=== PATIENT | female | born 1995 | race Caucasian/White ===

== ENCOUNTER 2018-05-22 10:18 | Outpatient (CLI) | payer OTHER ==
[2018-05-22 17:57] LABS: ALBUMIN 4.4 g/dL (3.2-5.5); ALBUMIN/GLOBULIN RATIO 1.5 (1.0-2.2); BILIRUBIN,TOTAL 0.9 mg/dL (0.2-1.0); CALCIUM 9.3 mg/dL (8.5-10.3); CREATININE 0.7 mg/dL (0.4-1.0); TOTAL PROTEIN 7.4 g/dL (6.7-8.2)
[2018-05-22 17:58] LABS: BASOPHILS % (AUTO) 0.7 %; EOSINOPHILS # (AUTO) 0.1 10^3/uL (0.0-0.7); EOSINOPHILS % (AUTO) 1.4 %; HGB - HEMOGLOBIN 14.8 g/dL (12.0-16.0); LYMPHOCYTES # (AUTO) 2.1 10^3/uL (1.5-3.5); LYMPHOCYTES % (AUTO) 38.5 %; MEAN CORPUSCULAR HEMOGLOBIN 30.4 pg (27.0-31.0); MEAN CORPUSCULAR HGB CONC 33.2 g/dL (32.0-36.0); MEAN CORPUSCULAR VOLUME 91.4 fL (81.0-99.0); MEAN PLATELET VOLUME 9.1 fL (7.9-10.8); MONOCYTES # (AUTO) 0.4 10^3/uL (0.0-1.0); MONOCYTES % (AUTO) 6.8 %; NEUTROPHILS # (AUTO) 2.9 10^3/uL (1.5-6.6); NEUTROPHILS % (AUTO) 52.6 %; PLT - PLATELET COUNT 231 10^3/uL (130-450); RED BLOOD COUNT 4.88 10^6/uL (4.20-5.40); RED CELL DISTRIBUTION WIDTH 12.9 % (12.0-15.0); WHITE BLOOD COUNT 5.5 x10^3/uL (4.8-10.8)
== END 2018-05-22 10:19 | disposition home or self-care (01) ==
LOC: LAB.F 10:18
PROVIDERS: ATTEND Nurse Practitioner
DX: R53.83 Other fatigue (principal)
CPT/HCPCS: 36415; 80053; 84443; 85025

== ENCOUNTER 2019-09-02 08:00 | Outpatient (CLI) | payer OTHER ==
--- NOTE | 2019-09-02 13:56 | XRAY Report ---
PROCEDURE: Ankle 3 View LT INDICATIONS: LEFT ANKLE PAIN TECHNIQUE: 3 views of the ankle were acquired. COMPARISON: X-ray foot 09/02/2019 FINDINGS: Bones: No fractures or dislocations. Ankle mortise is normally aligned. No suspicious bony lesions . Soft tissues: No tibiotalar joint effusion. Achilles tendon appears normal. IMPRESSION: No visualized acute fracture or dislocation. However, occult injury cannot be excluded. Recommend short interval imaging follow-up in 7-10 days as clinically indicated for additional evalua tion. Reviewed by: Gita Frazier MD on 09/02/2019 1:55 PM PDT Approved by: Gita Frazier MD on 09/02/2019 1:55 PM PDT Station ID: [id number]
--- NOTE | 2019-09-02 13:56 | XRAY Report ---
PROCEDURE: Foot 3 View LT INDICATIONS: LEFT FOOT PAIN TECHNIQUE: 3 views of the foot were acquired. COMPARISON: X-ray ankle 09/02/2019 FINDINGS: Bones: No fractures or dislocations. No suspicious bony lesions. Soft tissues: No tibiotalar joint effusion. Achilles tendon appears normal. IMPRESSION: No visualized acute fracture or dislocation. However, occult injury cannot be excluded. Recommend jose rt interval imaging follow-up in 7-10 days as clinically indicated for additional evaluation. Reviewed by: Gita Frazier MD on 09/02/2019 1:55 PM PDT Approved by: Gita Frazier MD on 09/02/2019 1:55 PM PDT Station ID: [id number]
== END 2019-09-02 23:59 | disposition home or self-care (01) ==
LOC: DI.S 08:00
PROVIDERS: ATTEND Physician Assistant
DX: M25.572 Pain in left ankle and joints of left foot (principal); M79.672 Pain in left foot

== ENCOUNTER 2019-09-12 14:05 | Outpatient (CLI) | payer OTHER | END 2019-09-12 23:59 | disposition home or self-care (01) | LOC: COV 14:05 | PROVIDERS: ATTEND Family Medicine | DX: R50.9 Fever, unspecified (principal); R05 Cough; M79.10 Myalgia, unspecified site; R53.83 Other fatigue; R19.7 Diarrhea, unspecified; R09.81 Nasal congestion; Z20.828 Contact with and (suspected) exposure to other viral communicable diseases ==

== ENCOUNTER 2021-01-25 08:00 | Outpatient (CLI) | payer OTHER | END 2021-01-25 23:59 | disposition home or self-care (01) | LOC: LAB.S 08:00 | PROVIDERS: ATTEND Physician Assistant Medical | DX: R05.9 Cough, unspecified (principal); Z20.822 Contact with and (suspected) exposure to COVID-19 | CPT/HCPCS: 87070; 87275; 87276 ==

== ENCOUNTER 2022-04-26 16:04 | Emergency (ER) | payer OTHER ==
[2022-04-26 16:34] LABS: BASOPHILS % (AUTO) 0.5 %; EOSINOPHILS # (AUTO) 0.1 10^3/uL (0.0-0.7); EOSINOPHILS % (AUTO) 0.9 %; HCT - HEMATOCRIT 44.3 % (37.0-47.0); HGB - HEMOGLOBIN 14.4 g/dL (12.0-16.0); LYMPHOCYTES # (AUTO) 2.6 10^3/uL (1.5-3.5); LYMPHOCYTES % (AUTO) 29.5 %; MEAN CORPUSCULAR HGB CONC 32.5 g/dL (32.0-36.0); MEAN CORPUSCULAR VOLUME 86.2 fL (81.0-99.0); MEAN PLATELET VOLUME 10.1 fL (7.9-10.8); MONOCYTES # (AUTO) 0.6 10^3/uL (0.0-1.0); MONOCYTES % (AUTO) 6.3 %; NEUTROPHILS # (AUTO) 5.5 10^3/uL (1.5-6.6); NEUTROPHILS % (AUTO) 62.5 %; PLT - PLATELET COUNT 273 10^3/uL (130-450); RED BLOOD COUNT 5.14 10^6/uL (4.20-5.40); RED CELL DISTRIBUTION WIDTH 13.8 % (12.0-15.0); WHITE BLOOD COUNT 8.7 x10^3/uL (4.8-10.8)
[2022-04-26 16:40] LABS: HCG UR QUAL NEGATIVE
[2022-04-26 16:47] LABS: ALBUMIN 4.5 g/dL (3.2-5.5); ALBUMIN/GLOBULIN RATIO 1.4 (1.0-2.2); BILIRUBIN,TOTAL 0.5 mg/dL (0.2-1.0); CREATININE 0.6 mg/dL (0.4-1.0); POTASSIUM 3.7 mmol/L (3.5-5.0); TOTAL PROTEIN 7.7 g/dL (6.7-8.2)
[2022-04-26] MEDS ORDERED: HYDROmorphone 1 MG/ML CARPUJECT IM STA (17:08)
[2022-04-26] MEDS ORDERED: KETOROLAC 60 MG/2 ML VIAL IM STA (17:08)
--- NOTE | 2022-04-26 17:11 | ED Physician Documentation ---
History of Present Illness - Stated complaint Stated Complaint: FEMALE - Chief complaint Chief Complaint: Abd Pain - History obtained from History obtained from: Patient - Additonal information Additional information: Patient comes to the emergency department chief complaint of pelvic pain for the last couple of days. She states that she has had dysuria and thought that perhaps she had a UTI. She started some Uristat that she had leftover from her last UTI, but has felt increasingly worse, with a deep burning and pain throughout her bilateral pelvis. Patient denies any nausea or vomiting. No unusual vaginal discharge. She states that she just finished her period about a week ago. She denies any symptoms of yeast infection. She states she has pain in her vulva and vagina that makes it difficult for her to sit down. She states the pain goes up through her pelvis on both sides. The patient denies any fevers or chills. She states she has been monogamous with her female partner fo r some years and has never had a sexually transmitted infection. No other complaints at this time. PD PAST MEDICAL HISTORY - Past Medical History Cardiovascular: None Respiratory: Asthma Neuro: None Endocrine/Autoimmune: None GI: None MOLDING LINE ASSISTANT: None : None HEENT: None Psych: None Musculoskeletal: None Derm: None - Past Surgical History Past Surgical History: No - Present Medications Home Medications: Ambulatory Orders Medication Instructions Recorded Confirmed norethindrone-e.estradioL-iron 1 each PO 11/13/13 11/26/13 [Microgestin Fe 1-20 Tablet] dexAMETHasone [Decadron] 4 mg PO DAILY #5 tablet 11/24/13 11/26/13 Cetirizine HCl [Zyrtec] 11/26/13 11/26/13 Metoclopramide [Reglan] 10 mg PO Q6H PRN #12 tablet 09/30/21 HYDROcod/ACETAM 5/325 [[place] 5/325] 1 - 2 tablet PO Q6H PRN #14 tablet 04/26/22 Ondansetron Odt [Zofran] 4 mg TL Q6H PRN #10 tablet 04/26/22 Sulfamethox/Trimeth 800/160 1 each PO BID #14 tablet 04/26/22 [Bactrim Ds 800/160] - Allergies Allergies/Adverse Reactions: Allergies Allergy/AdvReac Type Severity Reaction Status Date / Time amoxicillin [Amoxicillin] Allergy Rash Verified 04/26/22 16:12 azithromycin Allergy Hives Verified 04/26/22 16:12 Penicillins Allergy Hives Verified 04/26/22 16:12 - Social History Does the pt smoke?: No Smoking Status: Never smoker Does the pt drink ETOH?: Yes Does the pt have substance abuse?: Yes - Immunizations Immunizations are current?: Yes - POLST Patient has POLST: No PD ED PE NORMAL - Vitals Vital signs reviewed: Yes - General General: Alert and oriented X 3, No acute distress, Well developed/nourished - HEENT HEENT: Atraumatic, PERRL, EOMI, Moist mucous membranes - Neck Neck: Supple, no meningeal sign - Cardiac Cardiac: RRR, No murmur, Strong equal pulses - Respiratory Respiratory: No respiratory distress, Clear bilaterally - Abdomen Abdomen: Soft, Non distended, Other (Exquisite tenderness bilateral pelvis and suprapubic area. No rebound. Does not extend into flanks or upper abdomen.) - Female Female : Other (Normal female genitalia. Mild erythema around vaginal introitus. No edema or fluctuance. No mass. The patient has cervical motion tenderness and bilateral adnexal tenderness without mass. Mild amount of brownish tinged vaginal discharge.) - Derm Derm: Normal color, Warm and dry, No rash - Extremities Extremities: No deformity - Neuro Neuro: Alert and oriented X 3 - Psych Psych: Normal mood, Normal affect Results - Vitals Vitals: Oxygen O2 Source Room air - Labs Labs: Laboratory Tests 04/26/22 04/26/22 04/26/22 16:21 16:29 16:29 WBC 8.7 RBC 5.14 Hgb 14.4 Hct 44.3 MCV 86.2 MCH 28.0 MCHC 32.5 RDW 13.8 Plt Count 273 MPV 10.1 Neut # (Auto) 5.5 Lymph # (Auto) 2.6 [place] # (Auto) 0.6 Eos # (Auto) 0.1 Baso # (Auto) 0.0 Absolute Nucleated RBC 0.00 Nucleated RBC % 0.0 Sodium 138 Potassium 3.7 Chloride 101 Carbon Dioxide 27 Anion Gap 10.0 BUN 11 Creatinine 0.6 Estimated GFR (MDRD) 121 Glucose 102 H Calcium 9.0 Total Bilirubin 0.5 AST 16 ALT 19 Alkaline Phosphatase 68 Total Protein 7.7 Albumin 4.5 Globulin 3.2 Albumin/Globulin Ratio 1.4 Lipase 30 Urine HCG, Qual NEGATIVE - Rads (name of study) US pelvis Radiology: Final report received, See rad report (PCOS, otherwise NAD) PD Medical Decision Making - ED course Complexity details: reviewed results, re-evaluated patient, considered differential, d/w patient ED course: The patient was worked up with CBC, ER abdominal panel, test, and ultrasound of the pelvis, all of which were ordered and reviewed by me. She was treated symptomatically with IM Dilaudid and Toradol. CBC and ERAP were unremarkable. test was negative. US pelvis showed findings consistent with polycystic ovarian disease, but otherwise negative. THe pt had already had a UA done at walk-in clinic, but because it was orange from the [facility], it was not able to be evaluated. Therefore, I did not feel there would be utility in repeating this only a few hours later. Given the pt's sx, I felt she should be treated with antibiotics. She had tenderness throughout her pelvis, but no discharge, fever, white count, or US findings. At this point, I decided to treat her for UTI at this time. However, we have discussed the need for follow-up if this does not resolve the sx. Departure - Departure Disposition: 01 Home, Self Care Clinical Impression: Pelvic pain in female Ovarian cyst Qualifiers: Laterality: bilateral Qualified Code(s): N83.201 - Unspecified ovarian cyst, right side UTI (urinary tract infection) Qualifiers: Urinary tract infection type: acute cystitis Hematuria presence: without hematuria Qualified Code(s): N30.00 - Acute cystitis without hematuria Condition: Stable Instructions: ED Cyst Ovarian, ED Pelvic Pain UKO, ED UTI Cystitis Female Prescriptions: Sulfamethox/Trimeth 800/160 [Bactrim Ds 800/160] 1 each PO BID #14 tablet HYDROcod/ACETAM 5/325 [[place] 5/325] 1 - 2 tablet PO Q6H PRN #14 tablet PRN Reason: Pain Ondansetron Odt [Zofran] 4 mg TL Q6H PRN #10 tablet PRN Reason: Nausea / Vomiting Comments: Your laboratory studies are completely normal and your pelvic ultrasound shows only some cysts on your ovaries. It is not clear why you are having some discomfort this time, but since you are having urinary tract infection symptoms, we will go ahead and treat you for that. If this does not resolve your pelvic pain, then you will need to follow-up with your solution manager. A prescription for your antibiotics, and as well as medication for pain, has been electronically transmitted to the [facility], your pharmacy of choice on record. Discharge Date/Time: 04/26/22 18:16
[2022-04-26] MEDS ORDERED: SULFAMETH/TRIMETH DS 800/160 MG TABLET PO STA (17:49)
[2022-04-26 18:05] VITALS: BP 120/82
--- NOTE | 2022-04-26 18:24 | Ultrasound Report ---
PROCEDURE: Pelvic w/Transvag+Doppler Comp INDICATIONS: pelvic pain, R TECHNIQUE: Real-time scanning was performed of the pelvic organs, with image documentation. Additional endovagi nal scanning was necessary due to incomplete visualization of the adnexal and endometrial structures by transabdominal scanning. Doppler interrogation was performed of the ovaries bilaterally. COMPARISON: None. FINDINGS: No pathologic free abdominal or pelvic fluid. Uterus: Uterus is normal in size at 5.8 x 3.2 x 4.0 cm. The endometrium measures 3 mm in combined t hickness. Ovaries: Right and left ovaries measure 3.4 x 1.9 x 3.3 cm and 2.3 x 1.7 x 3.2 cm respectively. Both ovaries have greater than 12 follicles noted, but otherwise appropriate echotexture vascularity Other: No free pelvic fluid. IMPRESSION: No acute findings. No evidence of torsion. Both ovaries have greater than 12 follicles noted. This finding has been correlated with polycystic o varian syndrome in the proper clinical setting Reviewed by: Roland Gutierrez MD on 04/26/2022 5:23 PM [facility] Approved by: Roland Gutierrez MD on 04/26/2022 5:23 PM [facility] Station ID: [id number]
== END 2022-04-26 18:16 | disposition home or self-care (01) ==
LOC: ED 16:04
DX: R10.2 Pelvic and perineal pain (principal); N83.201 Unspecified ovarian cyst, right side; N30.00 Acute cystitis without hematuria
CPT/HCPCS: 36415; 76830; 76856; 80053; 81025; 83690; 85025; 93975; 96372; 99284; A9270; J1170; 81001; 81003; 87086

== ENCOUNTER 2022-08-17 07:00 | Outpatient (CLI) | payer OTHER | END 2022-08-17 23:59 | disposition home or self-care (01) | LOC: LAB.S 07:00 | PROVIDERS: ATTEND Physician Assistant Medical | DX: N39.0 Urinary tract infection, site not specified (principal) | CPT/HCPCS: 87086 ==

== ENCOUNTER 2022-10-20 08:00 | Outpatient (CLI) | payer OTHER | END 2022-10-20 23:59 | disposition home or self-care (01) | LOC: LAB.S 08:00 | PROVIDERS: ATTEND Physician Assistant | DX: R31.9 Hematuria, unspecified (principal) | CPT/HCPCS: 87086 ==

== ENCOUNTER 2022-10-28 08:00 | Outpatient (CLI) | payer OTHER ==
[2022-10-28 19:53] LABS: BACTERIAL VAGINOSIS DNA POSITIVE (NEGATIVE); CANDIDA GLABRATA DNA NEGATIVE (NEGATIVE); CANDIDA GROUP DNA POSITIVE (NEGATIVE); CANDIDA KRUSEI DNA NEGATIVE (NEGATIVE); TRICHOMONAS VAGINALIS DNA NEGATIVE (NEGATIVE)
[2022-10-28 21:40] LABS: CHLAMYDIA TRACHOMATIS DNA NEGATIVE (NEGATIVE); NEISSERIA GONORRHOEAE DNA NEGATIVE (NEGATIVE)
== END 2022-10-28 23:59 | disposition home or self-care (01) ==
LOC: LAB.WC 08:00
PROVIDERS: ATTEND Nurse Practitioner
DX: N39.0 Urinary tract infection, site not specified (principal); Z11.3 Encounter for screening for infections with a predominantly sexual mode of transmission; N89.8 Other specified noninflammatory disorders of vagina
CPT/HCPCS: 81514; 81599; 87109; 87491; 87591; 87661

== ENCOUNTER 2023-03-02 09:04 | Outpatient (CLI) | payer OTHER ==
[2023-03-02 14:39] LABS: BASOPHILS % (AUTO) 0.6 %; EOSINOPHILS # (AUTO) 0.1 10^3/uL (0.0-0.7); EOSINOPHILS % (AUTO) 1.8 %; HCT - HEMATOCRIT 43.9 % (37.0-47.0); LYMPHOCYTES % (AUTO) 39.6 %; MEAN CORPUSCULAR HGB CONC 31.9 g/dL (32.0-36.0); MEAN CORPUSCULAR VOLUME 90.9 fL (81.0-99.0); MONOCYTES # (AUTO) 0.4 10^3/uL (0.0-1.0); MONOCYTES % (AUTO) 7.7 %; NEUTROPHILS # (AUTO) 2.5 10^3/uL (1.5-6.6); NEUTROPHILS % (AUTO) 50.1 %; PLT - PLATELET COUNT 258 10^3/uL (130-450); RED BLOOD COUNT 4.83 10^6/uL (4.20-5.40); RED CELL DISTRIBUTION WIDTH 12.2 % (12.0-15.0)
[2023-03-02 15:42] LABS: ALBUMIN 4.4 g/dL (3.2-5.5); ALBUMIN/GLOBULIN RATIO 1.4 (1.0-2.2); BILIRUBIN,TOTAL 0.8 mg/dL (0.2-1.0); CALCIUM 9.4 mg/dL (8.5-10.3); CREATININE 0.7 mg/dL (0.6-1.3); POTASSIUM 3.9 mmol/L (3.5-4.5); TOTAL PROTEIN 7.6 g/dL (6.4-8.9)
[2023-03-02 16:06] LABS: THYROID STIMULATING HORMONE 1.83 uIU/mL (0.34-5.60)
== END 2023-03-02 09:05 | disposition home or self-care (01) ==
LOC: LAB.S 09:04
PROVIDERS: ATTEND Physician Assistant Medical
DX: N94.6 Dysmenorrhea, unspecified (principal); Z13.9 Encounter for screening, unspecified
CPT/HCPCS: 36415; 80053; 84443; 85025

== ENCOUNTER 2023-03-21 11:22 | Emergency (ER) | payer OTHER ==
--- NOTE | 2023-03-21 12:01 | ED Physician Documentation ---
PD HPI FEMALE - Stated complaint Stated Complaint: - Chief complaint Chief Complaint: Abd Pain - History obtained from History obtained from: Patient - History of Present Illness Timing - onset: How many days ago (6) Timing - duration: Days (6) Timing - details: Gradual onset, Still present, Waxing and waning Associated symptoms: Vaginal bleeding, Dysuria, Urinary frequency. No: Fever, Vaginal discharge, Genital sore/lesion Contributing factors: No: , Exposed to STD Recently seen: Clinic (SENIOR HEALTH PHYSICS TECHNICIAN for eval of painful menses for months.) Review of Systems Constitutional: denies: Fever, Chills Nose: denies: Rhinorrhea / runny nose, Congestion Throat: denies: Sore throat Respiratory: denies: Cough GI: reports: Nausea : reports: Dysuria, Frequency, Irregular menses (has been on currrent menses for 30 days to some degree, with some lower pelvic pains due to PCOS. was texting SENIOR HEALTH PHYSICS TECHNICIAN clinic about med change. Has had painful menses for months, and to be evaluated for endometriosis with pelvic US and MRI, which are being scheduled.). denies: Discharge Musculoskeletal: reports: Back pain Neurologic: reports: Generalized weakness. denies: Near syncope PD PAST MEDICAL HISTORY - Past Medical History Past Medical History: Yes Cardiovascular: None Respiratory: Asthma Neuro: None Endocrine/Autoimmune: None GI: None SENIOR HEALTH PHYSICS TECHNICIAN: Other (PCOS) : Chronic bladder infection HEENT: None Psych: Depression, Anxiety, Post traumatic stress disorder Musculoskeletal: None Derm: None Other Past Medical History: PCOS - Past Surgical History Past Surgical History: Yes - Present Medications Home Medications: Ambulatory Orders Medication Instructions Recorded Confirmed norethindrone-e.estradioL-iron 1 each PO 11/13/13 11/26/13 [Microgestin Fe 1-20 Tablet] dexAMETHasone [Decadron] 4 mg PO DAILY #5 tablet 11/24/13 11/26/13 Cetirizine HCl [Zyrtec] 11/26/13 11/26/13 Metoclopramide [Reglan] 10 mg PO Q6H PRN #12 tablet 09/30/21 HYDROcod/ACETAM 5/325 [[place] 5/325] 1 - 2 tablet PO Q6H PRN #14 tablet 04/26/22 Ondansetron Odt [Zofran] 4 mg TL Q6H PRN #10 tablet 04/26/22 Sulfamethox/Trimeth 800/160 1 each PO BID #14 tablet 04/26/22 [Bactrim Ds 800/160] HYDROcod/ACETAM 5/325 [[place] 5/325] 1 ea PO Q6H PRN #12 tablet 03/21/23 Meloxicam [Mobic] 7.5 mg PO BID 10 Days #20 tablet 03/21/23 Norethindrone AC-Eth Estradiol 1 each PO DAILY #1 packet 03/21/23 [Loestrin 21 1.5-30 Tablet] Sulfamethox/Trimeth 800/160 1 each PO BID #14 tablet 03/21/23 [Bactrim Ds 800/160] - Allergies Allergies/Adverse Reactions: Allergies Allergy/AdvReac Type Severity Reaction Status Date / Time amoxicillin [Amoxicillin] Allergy Rash Verified 03/21/23 11:34 azithromycin Allergy Hives Verified 03/21/23 11:34 Penicillins Allergy Hives Verified 03/21/23 11:34 - Social History Does the pt smoke?: No Smoking Status: Never smoker Does the pt drink ETOH?: Yes Does the pt have substance abuse?: Yes Substance Use and Type: Marijuana - Immunizations Immunizations are current?: Yes - POLST Patient has POLST: No PD ED PE NORMAL - Vitals Vital signs reviewed: Yes - General General: Alert and oriented X 3, Well developed/nourished, Other (appears in pain lower abd. ) - Cardiac Cardiac: No murmur. No: RRR (tachycardic but normal BP. Presume due to pain but will get labs, give IV fluids and pain meds. ) - Respiratory Respiratory: No respiratory distress, Clear bilaterally - Abdomen Abdomen: Normal bowel sounds, Soft, Non distended, No organomegaly, Other (tender with guarding lower abd suprapubic and LLQ areas with some guarding and percussion tender but no rebound nor referred. ) - Female Female : Deferred (will have her due self swab for BV eval. ) - Derm Derm: Normal color, Warm and dry - Extremities Extremities: No edema - Neuro Neuro: Alert and oriented X 3, No motor deficit, Normal speech Results - Vitals Vitals: Vital Signs - 24 hr 03/21/23 03/21/23 03/21/23 11:34 13:41 15:00 Temperature 36.2 C L Heart Rate 121 H 75 70 Respiratory 18 20 18 Rate Blood Pressure 139/88 H 109/81 H 115/76 O2 Saturation 97 95 98 03/21/23 16:15 Temperature Heart Rate 72 Respiratory 16 Rate Blood Pressure 118/76 O2 Saturation 98 Oxygen O2 Source Room air - Labs Labs: Laboratory Tests 03/21/23 03/21/23 03/21/23 11:52 12:05 12:05 WBC 6.6 RBC 5.07 Hgb 14.9 Hct 45.1 MCV 89.0 MCH 29.4 MCHC 33.0 RDW 12.0 Plt Count 262 MPV 10.5 Neut # (Auto) 4.1 Lymph # (Auto) 2.0 [place] # (Auto) 0.4 Eos # (Auto) 0.1 Baso # (Auto) 0.0 Absolute Nucleated RBC 0.00 Nucleated RBC % 0.0 Sodium 136 Potassium 3.6 Chloride 103 Carbon Dioxide 25 Anion Gap 8.0 BUN 9 Creatinine 0.7 Estimated GFR (MDRD) 100 Glucose 106 H Calcium 9.3 Total Bilirubin 0.4 AST 11 ALT 11 Alkaline Phosphatase 51 Total Protein 7.7 Albumin 4.3 Globulin 3.4 Albumin/Globulin Ratio 1.3 Lipase 22 Urine Color DARK YELLOW Urine Clarity CLEAR Urine pH 6.0 Ur Specific [place] 1.025 Urine Protein NEGATIVE Urine Glucose (UA) NEGATIVE Urine Ketones 15 H Urine Occult Blood MODERATE H Urine Nitrite POSITIVE H Urine Bilirubin NEGATIVE Urine Urobilinogen 0.2 (NORMAL) Ur Leukocyte Esterase TRACE H Urine RBC 0-5 Urine WBC >25 H Ur Squamous Epith Cells FEW Squamous Urine Bacteria Moderate H Ur Microscopic Review INDICATED Urine Culture Comments INDICATED Urine HCG, Qual NEGATIVE C. glabrata (PCR) C. krusei (PCR) Nena species DNA T. vaginalis (PCR) Bact Vaginosis (PCR) 03/21/23 12:45 WBC RBC Hgb Hct MCV MCH MCHC RDW Plt Count MPV Neut # (Auto) Lymph # (Auto) [place] # (Auto) Eos # (Auto) Baso # (Auto) Absolute Nucleated RBC Nucleated RBC % Sodium Potassium Chloride Carbon Dioxide Anion Gap BUN Creatinine Estimated GFR (MDRD) Glucose Calcium Total Bilirubin AST ALT Alkaline Phosphatase Total Protein Albumin Globulin Albumin/Globulin Ratio Lipase Urine Color Urine Clarity Urine pH Ur Specific [place] Urine Protein Urine Glucose (UA) Urine Ketones Urine Occult Blood Urine Nitrite Urine Bilirubin Urine Urobilinogen Ur Leukocyte Esterase Urine RBC Urine WBC Ur Squamous Epith Cells Urine Bacteria Ur Microscopic Review Urine Culture Comments Urine HCG, Qual C. glabrata (PCR) NEGATIVE C. krusei (PCR) NEGATIVE Nena species DNA NEGATIVE T. vaginalis (PCR) NEGATIVE Bact Vaginosis (PCR) NEGATIVE PD Medical Decision Making - ED course Complexity details: reviewed results (pt with clear UTI/pyelo by symptoms per UA. However has had other pains for month with ongoing menses and concern for endometriosis. US without acute abnormalities (multiple small cysts c/w PCOS). Abx for UTI. Change OCPs to help stop menses. ), re-evaluated patient (she is feeling much improved with fluids, Toradol, Dilaudid. and started on Rocephin for UTI. She asked for Bactrim Rx for the UTI and so will give that. ), d/w patient, d/w client support consultant (Dr. Hester SENIOR HEALTH PHYSICS TECHNICIAN to discuss change in OCP med for the prolonged period. ) Departure - Departure Disposition: 01 Home, Self Care Clinical Impression: Lower abdominal pain UTI (urinary tract infection) Qualifiers: Urinary tract infection type: site unspecified Condition: Stable Record reviewed to determine appropriate education?: Yes Follow-Up: Gertrudis Carrillo PA [Primary Care Provider] - [facility] [Provider Group] Prescriptions: Sulfamethox/Trimeth 800/160 [Bactrim Ds 800/160] 1 each PO BID #14 tablet Norethindrone AC-Eth Estradiol [Loestrin 21 1.5-30 Tablet] 1 each PO DAILY #1 packet Meloxicam [Mobic] 7.5 mg PO BID 10 Days #20 tablet HYDROcod/ACETAM 5/325 [[place] 5/325] 1 ea PO Q6H PRN #12 tablet PRN Reason: Pain Comments: Your pelvic ultrasound did not show any obvious abnormalities. I printed a copy of the report for you. Your urine sample does show signs of a urinary tract infection. Hopefully this is accounting for much of your symptoms currently. We can treat this with Bactrim DS twice daily for a week. Also stay well-hydrated with lots of fluids. Ondansetron if needed (which she states you have some at home). We can treat also the discomfort with anti-inflammatory. It is possible you may be having some persistent pelvic pain related to endometriosis or such. The planned MRI will be more diagnostic for that compared to ultrasound. Part of treating and that if there is a component of endometriosis, would be anti-inflammatories and also stopping your prolonged period so the endometrial is less inflamed. I actually did talk with the PANELBOARD ASSEMBLER on-call about your oral contraceptive change. They suggested changing to a similar mix of hormones but at a slightly higher dose. I wrote a prescription for the Loestrin . Add Tylenol 500 to 650 mg every 4-6 hours if needed for pain and hydrocodone/acetaminophen if needed for worse pain. I sent your prescriptions to your preferred pharmacy. I am prescribing a short course of narcotic pain medication for you. These are potentially dangerous and addictive medications that should be used carefully. These medications may constipate you. Take an [id number] stool softener such as docusate twice daily with plenty of water while taking these medications. If you go 24 hours without a bowel movement, take [id number] MiraLAX, per package instructions. Do not drink or drive while taking these medications. If you received narcotic or sedating medications while in the emergency department do not drive for 24 hours. Store this medication in a safe, secure place and out of reach of children. It is a violation of federal law to give or sell this medication to another person or to use in a manner other than prescribed. The ED will not refill narcotic prescriptions, including prescriptions lost or stolen. You can dispose of unwanted medications at the [facility]'s office or at several pharmacies such as [facility] Recheck if not improving well over the next few days and return if worsening. Follow-up with your gynecology as well. Forms: PCP List Discharge Date/Time: 03/21/23 16:16
[2023-03-21 12:27] LABS: BILIRUBIN,URINE NEGATIVE (NEGATIVE); GLUCOSE, URINE (UA) NEGATIVE (NEGATIVE); KETONES,URINE (UA) 15 mg/dL (NEGATIVE); LEUKOCYTE ESTERASE, URINE TRACE (NEGATIVE); NITRITE,URINE POSITIVE (NEGATIVE); OCCULT BLOOD,URINE MODERATE (NEGATIVE); PROTEIN,URINE NEGATIVE (NEGATIVE); UROBILINOGEN,URINE 0.2 (NORMAL) E.U./dL (NORMAL)
[2023-03-21] MEDS ORDERED: HYDROmorphone 1 MG/ML CARPUJECT IVP STA (12:27)
[2023-03-21] MEDS ORDERED: SODIUM CHLORIDE 0.9% 1,000 ML IV STA (12:27)
[2023-03-21] MEDS ORDERED: DROPERIDOL 5 MG/2 ML VIAL IVP STA (12:27)
[2023-03-21] MEDS ORDERED: KETOROLAC 15 MG/ML VIAL IVP STA (12:27)
[2023-03-21 12:29] LABS: CLARITY,URINE CLEAR (CLEAR); HCG UR QUAL NEGATIVE
[2023-03-21 12:30] LABS: BASOPHILS % (AUTO) 0.5 %; EOSINOPHILS # (AUTO) 0.1 10^3/uL (0.0-0.7); EOSINOPHILS % (AUTO) 0.8 %; HCT - HEMATOCRIT 45.1 % (37.0-47.0); HGB - HEMOGLOBIN 14.9 g/dL (12.0-16.0); LYMPHOCYTES % (AUTO) 30.6 %; MEAN CORPUSCULAR HEMOGLOBIN 29.4 pg (27.0-31.0); MEAN PLATELET VOLUME 10.5 fL (7.9-10.8); MONOCYTES # (AUTO) 0.4 10^3/uL (0.0-1.0); NEUTROPHILS # (AUTO) 4.1 10^3/uL (1.5-6.6); NEUTROPHILS % (AUTO) 61.9 %; PLT - PLATELET COUNT 262 10^3/uL (130-450); RED BLOOD COUNT 5.07 10^6/uL (4.20-5.40); WHITE BLOOD COUNT 6.6 x10^3/uL (4.8-10.8)
[2023-03-21 12:48] LABS: ALBUMIN 4.3 g/dL (3.2-5.5); ALBUMIN/GLOBULIN RATIO 1.3 (1.0-2.2); BILIRUBIN,TOTAL 0.4 mg/dL (0.2-1.0); CALCIUM 9.3 mg/dL (8.5-10.3); CREATININE 0.7 mg/dL (0.6-1.3); POTASSIUM 3.6 mmol/L (3.5-4.5); TOTAL PROTEIN 7.7 g/dL (6.4-8.9)
[2023-03-21 13:00] LABS: WBC,URINE >25 /HPF (0-5)
[2023-03-21 13:01] LABS: BACTERIA,URINE Moderate /HPF (None Seen); RBC,URINE 0-5 /HPF (0-5); SQUAMOUS EPITHELIAL CELL,UR FEW Squamous (<= Few)
[2023-03-21] MEDS ORDERED: cefTRIAXone 1 GM VIAL IVP STA (14:01)
--- NOTE | 2023-03-21 14:12 | Ultrasound Report ---
PROCEDURE: Pelvic w/Transvag+Doppler Comp INDICATIONS: pelvic pain, L TECHNIQUE: Real-time scanning was performed of the pelvic organs, with image documentation. Additional endovagi nal scanning was necessary due to incomplete visualization of the adnexal and endometrial structures by transabdominal scanning. Doppler interrogation was performed of the ovaries bilaterally. COMPARISON: None. FINDINGS: Uterus: Uterus is anteverted and normal in size at 7.0 x 3.3 x 3.4 cm. The myometrium is homogeneou s. The endometrium measures 3 mm in combined thickness. No focal uterine mass Ovaries: Within normal as bilaterally with less than 12 follicular cysts. Intact flow seen in each ov sheila. Other: No pathologic free abdominal or pelvic fluid. IMPRESSION: No acute process. Reviewed by: Megha Kellogg MD on 03/21/2023 2:11 PM PST Approved by: Megha Kellogg MD on 03/21/2023 2:11 PM PST Station ID: [id number]
[2023-03-21 15:16] VITALS: O2SAT 98
[2023-03-21 15:43] LABS: BACTERIAL VAGINOSIS DNA NEGATIVE (NEGATIVE); CANDIDA GLABRATA DNA NEGATIVE (NEGATIVE); CANDIDA GROUP DNA NEGATIVE (NEGATIVE); CANDIDA KRUSEI DNA NEGATIVE (NEGATIVE); TRICHOMONAS VAGINALIS DNA NEGATIVE (NEGATIVE)
[2023-03-21] MEDS ORDERED: SULFAMETH/TRIMETH DS 800/160 MG TABLET PO STA (15:51)
[2023-03-21 16:20] VITALS: BP 118/76
== END 2023-03-21 16:16 | disposition home or self-care (01) ==
LOC: ED 11:22
DX: N39.0 Urinary tract infection, site not specified (principal)
CPT/HCPCS: 36415; 76830; 76856; 80053; 81001; 81025; 81514; 83690; 85025; 87086; 87181; 93975; 96374; 96375; 99283; 99284; A9270; J1170; 81003

== ENCOUNTER 2023-04-10 23:03 | Emergency (ER) | payer OTHER ==
[2023-04-11 00:11] LABS: BASOPHILS % (AUTO) 0.2 %; EOSINOPHILS % (AUTO) 0.2 %; HCT - HEMATOCRIT 42.6 % (37.0-47.0); HGB - HEMOGLOBIN 14.2 g/dL (12.0-16.0); LYMPHOCYTES % (AUTO) 8.2 %; MEAN CORPUSCULAR HEMOGLOBIN 29.4 pg (27.0-31.0); MEAN CORPUSCULAR HGB CONC 33.3 g/dL (32.0-36.0); MEAN CORPUSCULAR VOLUME 88.2 fL (81.0-99.0); MEAN PLATELET VOLUME 10.4 fL (7.9-10.8); MONOCYTES # (AUTO) 0.5 10^3/uL (0.0-1.0); MONOCYTES % (AUTO) 4.7 %; NEUTROPHILS % (AUTO) 86.4 %; PLT - PLATELET COUNT 247 10^3/uL (130-450); RED BLOOD COUNT 4.83 10^6/uL (4.20-5.40); RED CELL DISTRIBUTION WIDTH 12.2 % (12.0-15.0); WHITE BLOOD COUNT 11.6 x10^3/uL (4.8-10.8)
[2023-04-11] MEDS: ONDANSETRON 4 MG/2 ML VIAL IVP STA (00:12)
[2023-04-11] MEDS: KETOROLAC 30 MG/ML VIAL IVP STA (00:12)
[2023-04-11] MEDS: SODIUM CHLORIDE 0.9% 1,000 ML IV STA (00:13)
[2023-04-11 00:35] LABS: ALBUMIN 4.3 g/dL (3.2-5.5); ALBUMIN/GLOBULIN RATIO 1.5 (1.0-2.2); BILIRUBIN,TOTAL 0.6 mg/dL (0.2-1.0); CALCIUM 9.5 mg/dL (8.5-10.3); CREATININE 0.7 mg/dL (0.6-1.3); POTASSIUM 3.4 mmol/L (3.5-4.5); TOTAL PROTEIN 7.1 g/dL (6.4-8.9)
[2023-04-11 00:53] LABS: RAPID STREP SCREEN Negative (Negative)
[2023-04-11 01:10] LABS: HCG UR QUAL NEGATIVE
--- NOTE | 2023-04-11 01:22 | ED Physician Documentation ---
PD HPI NVD - Stated complaint Stated Complaint: VOMIT/R EYE PX - Chief complaint Chief Complaint: Abd Pain - History obtained from History obtained from: Patient - Additonal information Additional information: Patient is a 27-year-old female presenting for evaluation of fever, nausea and vomiting starting today. Last night she reports developing pinkeye in the right eye. She has had green and yellow discharge from the eye and woke up today with it crusted over. Denies pain or changes to her vision. Today she has developed a fever with a Tmax of 103.6. This evening she developed nausea and vomiting was unable to keep down acetaminophen thus presented to the ER. No known sick contacts. No diarrhea. Reports having a sore throat and body aches Review of Systems Constitutional: reports: Fever Throat: reports: Sore throat Cardiac: denies: Chest pain / pressure Respiratory: denies: Dyspnea GI: reports: Abdominal Pain, Nausea, Vomiting : denies: Dysuria PD PAST MEDICAL HISTORY - Past Medical History Past Medical History: Yes Cardiovascular: None Respiratory: Asthma Neuro: None Endocrine/Autoimmune: None GI: None [employer]: Other : Chronic bladder infection HEENT: None Psych: Depression, Anxiety, Post traumatic stress disorder Musculoskeletal: None Derm: None - Past Surgical History Past Surgical History: Yes - Present Medications Home Medications: Ambulatory Orders Medication Instructions Recorded Confirmed norethindrone-e.estradioL-iron 1 each PO 11/13/13 11/26/13 [Microgestin Fe 1-20 Tablet] dexAMETHasone [Decadron] 4 mg PO DAILY #5 tablet 11/24/13 11/26/13 Cetirizine HCl [Zyrtec] 11/26/13 11/26/13 Metoclopramide [Reglan] 10 mg PO Q6H PRN #12 tablet 09/30/21 HYDROcod/ACETAM 5/325 [[place] 5/325] 1 - 2 tablet PO Q6H PRN #14 tablet 04/26/22 Ondansetron Odt [Zofran] 4 mg TL Q6H PRN #10 tablet 04/26/22 Sulfamethox/Trimeth 800/160 1 each PO BID #14 tablet 04/26/22 [Bactrim Ds 800/160] HYDROcod/ACETAM 5/325 [[place] 5/325] 1 ea PO Q6H PRN #12 tablet 03/21/23 Meloxicam [Mobic] 7.5 mg PO BID 10 Days #20 tablet 03/21/23 Norethindrone AC-Eth Estradiol 1 each PO DAILY #1 packet 03/21/23 [Loestrin 21 1.5-30 Tablet] Sulfamethox/Trimeth 800/160 1 each PO BID #14 tablet 03/21/23 [Bactrim Ds 800/160] Ondansetron Odt [Zofran] 4 mg TL Q6H PRN #10 tablet 04/11/23 Polymyxin B/Trimeth Ophth Drop 1 drops EACHEYE Q3H 7 Days #1 each 04/11/23 [Polytrim Ophth Drops] - Allergies Allergies/Adverse Reactions: Allergies Allergy/AdvReac Type Severity Reaction Status Date / Time amoxicillin [Amoxicillin] Allergy Rash Verified 04/10/23 23:28 azithromycin Allergy Hives Verified 04/10/23 23:28 Penicillins Allergy Hives Verified 04/10/23 23:28 - Social History Does the pt smoke?: No Smoking Status: Never smoker Does the pt drink ETOH?: Yes Does the pt have substance abuse?: Yes - Immunizations Immunizations are current?: Yes - POLST Patient has POLST: No PD ED PE NORMAL - General General: Alert and oriented X 3, No acute distress, Well developed/nourished - HEENT HEENT: Atraumatic, PERRL, EOMI, Moist mucous membranes, Pharynx benign (No oral swelling, erythema or exudate) - Neck Neck: Supple, no meningeal sign - Cardiac Cardiac: Other (. Tachycardic, regular rhythm) - Respiratory Respiratory: No respiratory distress, Clear bilaterally - Abdomen Abdomen: Normal bowel sounds, Soft, Non distended, Other (Mild generalized abdominal tenderness) - Derm Derm: Warm and dry - Neuro Neuro: Normal speech PD ED PE EXPANDED - Eyes Eyes: PERRL, EOMI, Injected conj/sclera (R). No: Eyelid swelling, Eyelid erythema Results - Vitals Vitals: Vital Signs - 24 hr 04/10/23 04/11/23 04/11/23 23:22 01:28 02:00 Temperature 38 C H Heart Rate 148 H 106 H 103 H Respiratory 16 16 16 Rate Blood Pressure 119/81 H 107/70 111/71 O2 Saturation 97 97 97 04/11/23 02:32 Temperature Heart Rate 97 Respiratory 18 Rate Blood Pressure 112/75 O2 Saturation 98 Oxygen O2 Source Room air - EKG (time done) 2351 EKG releavant findings:: EKG personally interpreted by author of this note. Relevant findings are: Rate 122, sinus tachycardia, no STEMI, QTc 452 - Labs Labs: Laboratory Tests 04/11/23 04/11/23 04/11/23 00:03 00:06 00:06 WBC 11.6 H RBC 4.83 Hgb 14.2 Hct 42.6 MCV 88.2 MCH 29.4 MCHC 33.3 RDW 12.2 Plt Count 247 MPV 10.4 Neut # (Auto) 10.0 H Lymph # (Auto) 1.0 L Sebastian # (Auto) 0.5 Eos # (Auto) 0.0 Baso # (Auto) 0.0 Absolute Nucleated RBC 0.00 Nucleated RBC % 0.0 Sodium 137 Potassium 3.4 L Chloride 104 Carbon Dioxide 21 Anion Gap 12.0 BUN 6 Creatinine 0.7 Estimated GFR (MDRD) 100 Glucose 99 Calcium 9.5 Total Bilirubin 0.6 AST 9 L ALT 8 L Alkaline Phosphatase 49 Total Protein 7.1 Albumin 4.3 Globulin 2.8 Albumin/Globulin Ratio 1.5 Lipase 30 Urine Color Urine Clarity Urine pH Ur Specific [place] Urine Protein Urine Glucose (UA) Urine Ketones Urine Occult Blood Urine Nitrite Urine Bilirubin Urine Urobilinogen Ur Leukocyte Esterase Ur Microscopic Review Urine Culture Comments Urine HCG, Qual Group A Strep Rapid Negative 04/11/23 04/11/23 00:58 00:58 WBC RBC Hgb Hct MCV MCH MCHC RDW Plt Count MPV Neut # (Auto) Lymph # (Auto) Sebastian # (Auto) Eos # (Auto) Baso # (Auto) Absolute Nucleated RBC Nucleated RBC % Sodium Potassium Chloride Carbon Dioxide Anion Gap BUN Creatinine Estimated GFR (MDRD) Glucose Calcium Total Bilirubin AST ALT Alkaline Phosphatase Total Protein Albumin Globulin Albumin/Globulin Ratio Lipase Urine Color YELLOW Urine Clarity CLEAR Urine pH 6.0 Ur Specific [place] 1.025 Urine Protein TRACE Urine Glucose (UA) NEGATIVE Urine Ketones >=80 H Urine Occult Blood NEGATIVE Urine Nitrite NEGATIVE Urine Bilirubin SMALL H Urine Urobilinogen 0.2 (NORMAL) Ur Leukocyte Esterase NEGATIVE Ur Microscopic Review NOT INDICATED Urine Culture Comments NOT INDICATED Urine HCG, Qual NEGATIVE Group A Strep Rapid PD Medical Decision Making - ED course Complexity details: reviewed results, re-evaluated patient, d/w patient ED course: Patient presenting for evaluation of fever with nausea and vomiting, sore throat and bodyaches. Noted to have a fever here and tachycardic. Patient declined a respiratory swab. Strep test was performed and is negative. She does have findings consistent with conjunctivitis of the right eye. Antibiotic drops prescribed. CBC, chemistry, urinalysis were obtained and reviewed. Mild leukocytosis. She is feeling better after IV fluids, Zofran and Toradol. She does have chronic Abdominal pain and states that with the fever or anytime she gets sick it usually feels worse so was given a dose of morphine. On repeat exam she does not have any localized tenderness. We discussed imaging but patient feels comfortable holding off on at this time. She understands continued supportive care as well as strict return precautions for any new or worsening symptoms. Departure - Departure Disposition: 01 Home, Self Care Clinical Impression: Fever, Body aches, Conjunctivitis, right eye, Nausea & vomiting Condition: Stable Instructions: ED Conjunctivitis Bacterial, ED Nausea Vomiting Prescriptions: Polymyxin B/Trimeth Ophth Drop [Polytrim Ophth Drops] 1 drops EACHEYE Q3H 7 Days #1 each Ondansetron Odt [Zofran] 4 mg TL Q6H PRN #10 tablet PRN Reason: Nausea / Vomiting Comments: You were evaluated for a fever along with nausea and vomiting. Your strep test is negative. Your urine does not show an infection. You did decline a respiratory swab which would test for COVID, flu and RSV as well as a few other common cold viruses. We did give you medicine to help with the nausea as well as IV fluids. I have sent a prescription for antinausea medication as well as eyedrops for conjunctivitis to [facility]. Return to the ER with any worsening symptoms. Forms: PCP List Discharge Date/Time: 04/11/23 02:47
[2023-04-11 01:25] LABS: BILIRUBIN,URINE SMALL (NEGATIVE); CLARITY,URINE CLEAR (CLEAR); GLUCOSE, URINE (UA) NEGATIVE (NEGATIVE); KETONES,URINE (UA) >=80 mg/dL (NEGATIVE); LEUKOCYTE ESTERASE, URINE NEGATIVE (NEGATIVE); NITRITE,URINE NEGATIVE (NEGATIVE); OCCULT BLOOD,URINE NEGATIVE (NEGATIVE); PROTEIN,URINE TRACE mg/dL (NEGATIVE); UROBILINOGEN,URINE 0.2 (NORMAL) E.U./dL (NORMAL)
[2023-04-11] MEDS: MORPHINE 2 MG/ML CARPUJECT IVP STA (01:35)
[2023-04-11] MEDS: POLYMYXIN B/TRIMETH OPHTH DROPS RIGHTEYE STA (01:35)
[2023-04-11 02:36] VITALS: BP 112/75; O2SAT 98
== END 2023-04-11 02:47 | disposition home or self-care (01) ==
LOC: ED 23:03
DX: R50.9 Fever, unspecified (principal); R11.2 Nausea with vomiting, unspecified; M79.10 Myalgia, unspecified site; H10.9 Unspecified conjunctivitis; R10.9 Unspecified abdominal pain; G89.29 Other chronic pain
CPT/HCPCS: 36415; 80053; 81003; 81025; 83690; 85025; 87070; 87430; 93005; 96374; 96375; 99284; 99285; A9270; 81001; 87086